=== PATIENT | female | born 1950 | race Caucasian/White ===

== ENCOUNTER 2020-07-15 14:54 | Emergency (ER) | payer MEDICARE, SELFPAY ==
[2020-07-15 14:55] VITALS: BP 163/107; PULSE 87; RESP 15; TEMP 36.1; O2SAT 96; BMI 34.4
--- NOTE | 2020-07-15 15:31 | EKG12_ITS ---
Test Reason : SOB Blood Pressure : / mmHG Vent. Rate : 097 BPM Atrial Rate : 097 BPM P-R Int : 138 ms QRS Dur : 134 ms QT Int : 420 ms P-R-T Axes : 055 -18 119 degrees QTc Int : 533 ms Normal sinus rhythm with sinus arrhythmia Left bundle branch block Abnormal ECG Confirmed by TIFFANY AUSTIN, DWAINE ([id number]), news copy editor NAYE BROWN ([id number]) on 07/24/2020 9:55:25 A M Referred By: ZACHERY Confirmed By:CARMEN ALLEN MD
--- NOTE | 2020-07-15 15:34 | RAD_ITS ---
STUDY: X-RAY CHEST REASON FOR EXAM: Female, 69 years old. PT C/O FATIGUE, MUCLE ACHES AND DIARRHEA SINCE LAST WEEK TECHNIQUE: Single AP portable view of the chest. COMPARISON: None. FINDINGS: EKG electrodes are seen. Hyperinflation. The lungs are clear. There is no demonstrated pleural abnormality. Normal size heart. Normal mediastinum and tim. Normal visualized pulmonary arteries. There is atherosclerotic calcification of the aortic arch with tortuosity. There are diffuse degenerative changes of the visualized thoracic spine. Normal visualized ribs, clavicles, and shoulders. Findings suggestive of a small hiatal hernia. RAD/Chest 1 View (Portable) IMPRESSION: Hyperinflation. The lungs are clear. Electronically Signed: Marcus Chen, at 15:48 EST , Service support ,
--- NOTE | 2020-07-15 15:51 | ED.DCSUM_ITS ---
History of Present Illness Chief Complaint: Fatigue Narrative: 69-year-old female with cough and mild body aches and she estimates this is about day 5. She went to an urgent care today and they sent her to the emergency room for evaluation of possible irregular rhythm. Patient is not having chest pain but has a mild cough with shortness of breath. She states she feels fine otherwise. Patient states I do not know why I am here. Has history of her lipidemia and hypothyroidism. Past Medical History - Allergies and Home Meds Allergies/Adverse Reactions: Allergies No Known Allergies Allergy (Verified 07/15/20 14:57) Primary Care Physician: Yazmin Miller MD [Primary Care Provider] - Prior records reviewed: Yes Past Medical History: - - Upper lipidemia and hypothyroidism Surgical History: noncontributory Lives: Alone Smoking Status: Unknown if ever smoked Alcohol: None Drugs: None Review of Systems General: Reports: Chills. Denies: Fever, Malaise Eyes: Denies: Visual changes - bilaterally, Diplopia ENT: Denies: Rhinorrhea, Sore throat Cardiovascular: Denies: Chest pain, Palpitations Respiratory: Reports: Dyspnea, Cough Gastrointestinal: Denies: Abdominal pain, Nausea, Vomiting, Diarrhea, Melena, Hematochezia Musculoskeletal: Reports: Myalgias. Denies: Arthralgias, Neck pain Skin: Denies: Rash, Wounds Neurological: Denies: Headache, Weakness, Numbness Psych: Denies: Depression, Anxiety Physical Exam Vital Signs/Narrative: Vital Signs Temp Pulse Resp BP Pulse Ox 07/15/20 14:55 96.9 F L 87 15 163/107 H 96 Inital Vital Signs reviewed: Yes General: Well nourished, No Acute Distress Head: Normocephalic, Atraumatic Eyes: Perrl, EOMI ENT: Moist mucous membranes, No rhinorrhea Cardiovascular: Regular rate, Regular rhythm Respiratory: No distress, CTA bilaterally Extremities: Nontender, No edema Skin: Normal color, No rash. Negative for: Cyanosis Neurological: Alert, Oriented x3, Cranial nerves II-XII grossly intact Psychological: Normal affect, Normal Mood Diagnostic/Tx/Re-eval Clinical Impression(s) from Imaging Studies Chest X-Ray 07/15/20 15:34 IMPRESSION: Hyperinflation. The lungs are clear. Electronically Signed: Marcus Chen, at 15:48 EST , Service support , Chest CTA 07/15/20 17:00 IMPRESSION: 1. No pulmonary embolism or arterial dissection. 2. Mild bilateral groundglass opacities concerning for pneumonia or bronchiolitis. Consider typical and atypical etiologies. 3. Cholelithiasis. 4. Small hiatal hernia. Electronically Signed: Sheri Martin MD at 17:45 EST Tel , Service support , Laboratory Data 07/15/20 07/15/20 07/15/20 15:50 16:00 16:00 WBC 6.4 RBC 5.23 Hgb 14.8 Hct 46.4 MCV 88.7 MCH 28.3 MCHC 31.9 L RDW Std Deviation 42.9 RDW Coeff of Mark 13.2 Plt Count 366 MPV 10.9 Immature Gran % (Auto) 0.200 Neut % (Auto) 71.3 H Lymph % (Auto) 16.2 L [place] % (Auto) 9.6 Eos % (Auto) 2.5 Baso % (Auto) 0.2 Absolute Neuts (auto) 4.6 Absolute Lymphs (auto) 1.03 Nucleated RBC % 0 D-Dimer Quant (PE/DVT) 0.79 H* Sodium Potassium Chloride Carbon Dioxide Anion Gap BUN Creatinine Estim Creat Clear Calc Est GFR (MDRD) Af Amer Est GFR (MDRD) Non-Af BUN/Creatinine Ratio Glucose Lactic Acid Calcium Magnesium Total Bilirubin AST ALT Alkaline Phosphatase Troponin I Total Protein Albumin Globulin Albumin/Globulin Ratio Procalcitonin COVID-19 (MICHELLE) Positive 07/15/20 07/15/20 07/15/20 16:00 16:00 16:20 WBC RBC Hgb Hct MCV MCH MCHC RDW Std Deviation RDW Coeff of Mark Plt Count MPV Immature Gran % (Auto) Neut % (Auto) Lymph % (Auto) [place] % (Auto) Eos % (Auto) Baso % (Auto) Absolute Neuts (auto) Absolute Lymphs (auto) Nucleated RBC % D-Dimer Quant (PE/DVT) Sodium 141 Potassium 3.7 Chloride 106 Carbon Dioxide 30.0 Anion Gap 5 BUN 10 Creatinine 0.69 Estim Creat Clear Calc 51.63 Est GFR (MDRD) Af Amer 108 Est GFR (MDRD) Non-Af 89 BUN/Creatinine Ratio 14.4 Glucose 93 Lactic Acid 0.9 Calcium 8.7 Magnesium 2.0 Total Bilirubin 0.40 AST 50 H ALT 78 H Alkaline Phosphatase 87 Troponin I < 0.015 Total Protein 7.5 Albumin 3.9 Globulin 3.6 Albumin/Globulin Ratio 1.1 Procalcitonin < 0.04 COVID-19 (MICHELLE) - Rhythm Strip Rhythm Strip: Sinus Rhythm Rate: 97 - EKG Initial EKG Interpretation: Sinus Rhythm, Sinus Arrythmia, LBBB - Medical Decision Making Presents for irregular heart rhythm from urgent care. She does have mild Covid?19 symptoms. Initially when I evaluated her I did an ambulatory pulse ox at the bedside for 30 seconds to maintain saturations of 94%. She did get tachycardic up to 150. She did not seem in any distress. I obtained an EKG which showed a normal sinus rhythm with a mild sinus arrhythmia. As interpreted by myself. There is no ST elevation or depression. There is a left bundle branch block. Patient denies any chest pain. Chest x-ray was obtained and is negative for acute process as read by myself and the radiologist. Dimer was elevated. CTA does show concern for groundglass infiltrates consistent with Covid?19. There are no pulmonary emboli. On reevaluation after hydration patient appears well. She states she feels fine. I feel she is stable for discharge home at this time. She did meet criteria to be enrolled in monoclonal antibodies and was given the paperwork. Her name was called over to the referral line. She is given return precautions. Impression: 1. Covid?19 pneumonitis ED Disposition - Plan for ED Patient: Disposition: Home or Assisted Living Instructions: Coronavirus Disease 2019 (COVID-19): Overview, Coronavirus Disease 2019 (COVID-19): Caring for Yourself or Others, Preventing the Spread of Infection Understanding Isolation Procedures Referrals: Yazmin Miller MD [Primary Care Provider] -
[2020-07-15 15:57] VITALS: BP 120/84; PULSE 93; RESP 17; TEMP 36.1; O2SAT 96
[2020-07-15 16:22] VITALS: BP 130/69; PULSE 94; RESP 92; TEMP 36.2; O2SAT 20
[2020-07-15 16:36] LABS: Absolute Lymphocyte Count 1.03 X10^3/uL (0.83-4.51); Absolute Neutrophil Count 4.6 X10^3/uL (2.0-7.7); Basophil# 0.01 X10^3/uL; Basophil% 0.2 % (0-1); Eosinophil# 0.16 X10^3/uL; Eosinophils% 2.5 % (0-5); Hematocrit 46.4 % (37-47); Hemoglobin 14.8 g/dL (12.0-15.0); Lymphocyte # 1.03 X10^3/ul (4.0); Lymphocyte % 16.2 % (19-41); Mean Corp Hgb Conc 31.9 g/dL (32-36); Mean Corpuscular Hgb 28.3 pg (27.0-32.0); Mean Corpuscular Volume 88.7 fL (81-99); Mean Platelet Vol. 10.9 fl (6.2-12.0); Monocyte# 0.61 X10^3/uL; Monocyte% 9.6 % (0-10); NRBC Flagged by Analyzer 0 % (0-5); Neutrophil # 4.55 X10^3/uL (2.7-7.7); Neutrophil % 71.3 % (47-70); Platelet Count 366 K/mm3 (150-450); RBC Distribution Width CV 13.2 % (11.6-14.6); RBC Distribution Width SD 42.9 fl (35.1-43.9); Red Blood Count 5.23 M/mm3 (4.2-5.4); White Blood Count 6.4 K/mm3 (4.4-11.0)
[2020-07-15 16:53] LABS: D-Dimer Quantitative (DVT/PE) 0.79 FEU/ug/m (0.27-0.49)
[2020-07-15 16:54] LABS: ALB/GLOB Ratio 1.1 RATIO (0.9-2.4); AST(SGOT) 50 U/L (15-37); Alanine Aminotransfer ALT/SGPT 78 U/L (13-56); Albumin, Serum 3.9 g/dL (3.2-5.0); Alkaline Phosphatase 87 U/L (45-117); Anion Gap 5 (5-15); BUN 10 mg/dL (7-18); BUN/Creat Ratio 14.4 RATIO (10-20); Calcium,Total 8.7 mg/dL (8.5-10.1); Chloride 106 mmol/L (98-107); Creatinine, Serum 0.69 mg/dL (0.55-1.02); EST Glomerular Filtration Rate 89 mL/min (>60); Est Glom Filt Rate - Afr Amer 108 mL/min (>60); Estimated Creatinine Clearance 51.63 ml/min; Globulin 3.6 g/dL (2.2-4.2); Glucose 93 mg/dL (74-106); Potassium 3.7 mmol/L (3.5-5.1); Protein, Total 7.5 g/dL (6.4-8.2); Sodium Level 141 mmol/L (136-145)
--- NOTE | 2020-07-15 17:00 | CT_ITS ---
STUDY: CTA CHEST REASON FOR EXAM: Female, 69 years old. Hypoxia, elevated D-dimer, muscle aches, fatigue RADIATION DOSAGE (If Supplied By Facility): CTDIvol = ( 13.97 ) mGy, DLP = ( 472.96 ) mGycm TECHNIQUE: The examination was performed with the intravenous administration of IV 100mL Isovue-370. Post-processing of the angiographic images was performed, with multiplanar reformation and 3D reconstruction. Individualized dose optimization techniques were used for this CT. COMPARISON: None. FINDINGS: The heart and pericardium are normal. The aorta is normal in caliber. No aneurysm or dissection. There is no mediastinal mass or adenopathy. There is no hilar or axillary adenopathy. There is no evidence of pulmonary embolus. There is no pleural effusion. Very mild groundglass opacities bilaterally. Large, solitary gallstone. Small hiatal hernia. There is no osseous abnormality. CT/CTA Chest W/WO Contrast IMPRESSION: 1. No pulmonary embolism or arterial dissection. 2. Mild bilateral groundglass opacities concerning for pneumonia or bronchiolitis. Consider typical and atypical etiologies. 3. Cholelithiasis. 4. Small hiatal hernia. Electronically Signed: Sheri Martin MD at 17:45 EST Tel , Service support ,
[2020-07-15 17:01] LABS: Lactic Acid 0.9 mmol/L (0.4-1.9)
[2020-07-15 17:03] LABS: Probe Check PASS; Specimen Processing Control PASS
[2020-07-15 17:05] VITALS: BP 128/98; PULSE 99; RESP 19; TEMP 36.8; O2SAT 94
[2020-07-15 19:17] LABS: Procalcitonin < 0.04 ng/mL (0.00-0.09)
== END 2020-07-15 18:44 | disposition home or self-care (01) ==
LOC: ED 16:01
PROVIDERS: Emergency Provider Student in an Organized Health Care Education/Training Program; PCP Internal Medicine
DX: U07.1 COVID-19 (principal); J12.89 Other viral pneumonia; I44.7 Left bundle-branch block, unspecified; E78.5 Hyperlipidemia, unspecified; E03.9 Hypothyroidism, unspecified; Z79.899 Other long term (current) drug therapy
CPT/HCPCS: 71045; 71275; 80053; 83605; 83735; 84145; 84484; 85025; 85379; 87040; 87635; 93005; 96360; 99284; J7040; Q9967; A4216; U0002

== ENCOUNTER 2022-07-20 15:43 | Emergency (ER) | payer MEDICARE, SELFPAY ==
[2022-07-20] VITALS (8 sets, daily range): BP systolic 128–147; BP diastolic 69–85; PULSE 77–111; RESP 16–18; TEMP 36–36.7; O2SAT 87–98; BMI 31.0
--- NOTE | 2022-07-20 16:45 | EKG12_ITS ---
Test Reason : DIZZY Blood Pressure : / mmHG Vent. Rate : 086 BPM Atrial Rate : 086 BPM P-R Int : 146 ms QRS Dur : 136 ms QT Int : 434 ms P-R-T Axes : 054 -16 119 degrees QTc Int : 519 ms Sinus rhythm with Premature supraventricular complexes Left bundle branch block Abnormal ECG Confirmed by MESSI AUSTIN, SOREN ([id number]), video editor NAYE BROWN ([id number]) on 07/22/2022 10:42:02 AM Referred By: Confirmed By:SOREN SWENSON MD
--- NOTE | 2022-07-20 16:46 | EX.ED.DYSGE1 ---
HPI History of Present Illness Chief Complaint: Dizziness Informant: patient Onset/Context/Timing Onset: Days Context: Gradual Onset Narrative Narrative: Patient presents secondary to lightheadedness/dizziness when she stands. She was diagnosed with influenza A 6 days ago. She was started on Tamiflu. Family states that she started coughing up green sputum on Wednesday, 3 days ago so they called the doctor and was started on doxycycline as well. Patient presents with continued cough and feels lightheaded and dizzy when she stands. She denies chest pain. She does not know when her last fever was. [facility] Medical History High cholesterol Hypothyroidism Home Medications alendronate 35 mg tablet 35 mg PO QMONTH 07/15/20 [History Last Taken Unknown] esomeprazole magnesium 20 mg capsule,delayed release 20 mg PO DAILY 07/15/20 [History Last Taken Unknown] levothyroxine 112 mcg tablet 112 mcg PO DAILY 07/15/20 [History Last Taken Unknown] pravastatin 40 mg tablet 40 mg PO DAILY 07/15/20 [History Last Taken Unknown] calcium carbonate 300 mg (750 mg) chewable tablet 300 mg PO BID 07/20/22 [History Last Taken Unknown] carvedilol 3.125 mg tablet 3.125 mg PO BID 07/20/22 [History Last Taken Unknown] doxycycline hyclate 100 mg tablet 100 mg PO BID 07/20/22 [History Last Taken Unknown] oseltamivir 75 mg capsule 75 mg PO BID 07/20/22 [History Last Taken Unknown] Allergy/AdvReac Type Severity Reaction Status Date / Time No Known Allergies Allergy Verified 07/20/22 15:50 Social History Smoking Status: Never smoker ROS ROS ED Constitutional Constitutional ED: Reports fever(s); Denies chills Eyes Eyes: Denies change in vision or discharge from eye(s) ENT ENT ED: Denies discharge from eye(s), rhinorrhea or sore throat Cardiovascular Cardiovascular: Denies chest pain or palpitations Respiratory/Chest Respiratory/Chest: Reports cough and dyspnea Gastrointestinal Gastrointestinal: Denies abdominal pain, diarrhea, nausea or vomiting Genitourinary Genitourinary ED: Denies difficulty urinating or dysuria Musculoskeletal Musculoskeletal: Reports myalgias; Denies back pain or extremity pain Integumentary Denies Abrasions or rash Neurologic Neurologic: Denies headache(s) or weakness Psychiatric Psychiatric: Denies anxiety or depression Allergic/Immunologic Allergic/Immunologic ED: Denies lip swelling or urticaria EXAM Physical Exam Const Vital Signs: 07/20/22 15:48 07/20/22 16:31 07/20/22 17:31 Temperature 96.8 F L Temperature Source Temporal Pulse Rate 94 111 H 77 Respiratory Rate 18 18 Blood Pressure 138/85 H 128/69 H Blood Pressure Mean 102 88 Pulse Ox 96 90 95 Pulse Ox [AMBULATING on Room Air] Oxygen Delivery Method Room Air Room Air Nasal Cannula Oxygen Flow Rate (L/min) 2 Oxygen Flow Rate (L/min) [AMBULATING on Room Air] 07/20/22 17:30 07/20/22 19:44 07/20/22 20:39 Temperature Temperature Source Pulse Rate 87 Respiratory Rate 16 Blood Pressure Blood Pressure Mean Pulse Ox 87 96 Pulse Ox [AMBULATING on Room Air] 94 Oxygen Delivery Method Room Air Nasal Cannula Oxygen Flow Rate (L/min) 2 Oxygen Flow Rate (L/min) [AMBULATING on Room Air] 2 Positive well nourished and well developed General Appearance ED: well developed HEENT Reports normocephalic and head/scalp atraumatic Eyes PERRL and EOMs intact bilaterally Neck supple Chest Wall inspection of chest normal and palpation of chest normal Resp normal respiratory effort and clear to auscultation bilaterally Cardio regular rate and regular rhythm GI normal to inspection, nondistended, normoactive bowel sounds Palpation: soft Extremity normal to inspection Neuro oriented x3 and no sensory deficits noted Sensorium / Orientation: alert Motor Exam: strength 5/5 throughout Psych mental status grossly normal Skin no rashes or lesions noted MDM MDM MDM Narrative Medical decision making narrative: Patient placed on monitoring and evaluation advisor. EKG, chest x-ray, lab work obtained. Lab Data Attestation: I reviewed the patient's lab results. Labs: Laboratory Results - last 24 hr 07/20/22 07/20/22 16:44 16:44 WBC 7.9 RBC 5.05 Hgb 14.5 Hct 46.4 MCV 91.9 MCH 28.7 MCHC 31.3 L RDW Std Deviation 43.7 RDW Coeff of Mark 13.0 Plt Count 446 MPV 10.9 Immature Gran % (Auto) 0.400 Neut % (Auto) 71.9 H Lymph % (Auto) 16.1 L [place] % (Auto) 9.0 Eos % (Auto) 2.3 Baso % (Auto) 0.3 Absolute Neuts (auto) 5.7 Absolute Lymphs (auto) 1.28 Nucleated RBC % 0 Sodium 139 Potassium 3.2 L Chloride 100 Carbon Dioxide 35.0 H Anion Gap 4 L BUN 7 Creatinine 0.55 Estim Creat Clear Calc 50.18 Est GFR (MDRD) Af Amer 140 Est GFR (MDRD) Non-Af 115 BUN/Creatinine Ratio 12.7 Glucose 105 Calcium 9.2 Radiography Chest X-Ray - ED: 1 View, Read by ED Physician and Chronic Changes Diagnostic Testing: Clinical Impression(s) from Imaging Studies Chest X-Ray 07/20/22 17:10 IMPRESSION: Likely COPD related changes with left lower lobe early infiltrate not excluded, clinically correlate. Electronically Signed: Billy CastroDO at 17:34 EST , Chest CTA 07/20/22 18:22 IMPRESSION: 1. No evidence of pulmonary embolism or aortic dissection. 2. Patchy airspace disease within the bilateral lower lobes and left upper lobe consistent with multifocal infiltrates/pneumonia in the appropriate clinical setting. Electronically Signed: Billy DO Matthew at 19:13 EST , EKG Initial EKG: Attestation: I personally reviewed and interpreted this EKG as follows: Interpretation: Sinus Rhythm (Sinus 86 with PACs. Left bundle branch block noted, no acute ischemia.) Treatment and Re-Evaluation Narrative: I was notified by nursing staff that patient's O2 sat dropped to 87% on room air. She was placed on 2 L nasal cannula. CBC and chemistry studies are significant for slightly low potassium at 3.2. This is replaced orally. Portable chest x-ray per my interpretation reveals chronic changes. EKG reveals no acute ischemia with a left bundle branch block. Due to the patient's hypoxia a CTA of the chest is obtained. This reveals no evidence of PE or dissection. There is patchy airspace disease in the bilateral lower lobes and left upper lobe consistent with multifocal infiltrate/pneumonia. This was discussed with the patient. While this may be all viral in nature, I will cover her with Rocephin and Zithromax. I will avoid Levaquin as her QTC is currently prolonged at 519. Due to the patient requiring oxygen I will speak with hospitalist regarding admission. Addendum: Patient was seen by hospitalist. They were able to arrange for the patient to have home oxygen tonight. She will continue the doxycycline she was previously taking. Patient will now be discharged to home with oxygen. Discharge Plan Triage Chief Complaint: Dizziness ED Provider: Radha Fletcher Dx/Rx/DC Orders Clinical Impression: Pneumonia, Hypoxia, Influenza A Instructions: ED Influenza (Adult) Prescriptions: No Action alendronate 35 MG tablet 35 mg PO QMONTH levothyroxine 112 MCG tablet 112 mcg PO DAILY pravastatin 40 MG tablet 40 mg PO DAILY esomeprazole magnesium 20 MG capsule 20 mg PO DAILY calcium carbonate 300 mg (750 mg) Tablet,Chewable 300 mg PO BID carvedilol 3.125 mg tablet 3.125 mg PO BID Label Comments: TAKE 1 TABLET BY MOUTH TWICE DAILY oseltamivir 75 mg capsule 75 mg PO BID Label Comments: TAKE 1 CAPSULE BY MOUTH TWICE DAILY FOR 5 DAYS doxycycline hyclate 100 mg tablet 100 mg PO BID Label Comments: TAKE 1 TABLET BY MOUTH TWICE DAILY FOR 10 DAYS Primary Care Provider: Yazmin Miller Referrals: Yazmin Miller MD [Primary Care Provider] - 1-2 Weeks Disposition Disposition: Home, Self Care
--- NOTE | 2022-07-20 17:10 | RAD_ITS ---
STUDY: X-RAY CHEST REASON FOR EXAM: Female, 71 years old. cough TECHNIQUE: PA and lateral views of the chest. COMPARISON: 07/15/2020 FINDINGS: Hyperinflation is present with underlying COPD related changes not excluded. Chronic interstitial markings of the lung bases are noted with subtle opacity overlying the left lower lobe on frontal projection. There is no demonstrated pleural abnormality. Normal size heart. Normal mediastinum and tim. Normal visualized pulmonary arteries. There is atherosclerotic calcification of the aortic arch with tortuosity. Normal visualized thoracic spine. Normal visualized ribs, clavicles, and shoulders. There is no demonstrated abnormality of the visualized soft tissue structures of the upper abdomen. RAD/Chest PA and Lateral IMPRESSION: Likely COPD related changes with left lower lobe early infiltrate not excluded, clinically correlate. Electronically Signed: Billy Castro DO at 17:34 EST ,
[2022-07-20 17:15] LABS: Absolute Lymphocyte Count 1.28 X10^3/uL (0.83-4.51); Absolute Neutrophil Count 5.7 X10^3/uL (2.0-7.7); Basophil# 0.02 X10^3/uL; Basophil% 0.3 % (0-1); Eosinophil# 0.18 X10^3/uL; Eosinophils% 2.3 % (0-5); Hematocrit 46.4 % (37-47); Hemoglobin 14.5 g/dL (12.0-15.0); Lymphocyte # 1.28 X10^3/ul (0.83-4.51); Lymphocyte % 16.1 % (19-41); Mean Corp Hgb Conc 31.3 g/dL (32-36); Mean Corpuscular Hgb 28.7 pg (27.0-32.0); Mean Corpuscular Volume 91.9 fL (81-99); Mean Platelet Vol. 10.9 fl (6.2-12.0); Monocyte# 0.71 X10^3/uL; NRBC Flagged by Analyzer 0 % (0-5); Neutrophil # 5.71 X10^3/uL (2.7-7.7); Neutrophil % 71.9 % (47-70); Platelet Count 446 K/mm3 (150-450); RBC Distribution Width SD 43.7 fl (35.1-43.9); Red Blood Count 5.05 M/mm3 (4.2-5.4); White Blood Count 7.9 K/mm3 (4.4-11.0)
[2022-07-20 17:16] LABS: Anion Gap 4 (5-15); BUN 7 mg/dL (7-18); BUN/Creat Ratio 12.7 RATIO (10-20); Calcium,Total 9.2 mg/dL (8.5-10.1); Chloride 100 mmol/L (98-107); Creatinine, Serum 0.55 mg/dL (0.55-1.02); EST Glomerular Filtration Rate 115 mL/min (>60); Est Glom Filt Rate - Afr Amer 140 mL/min (>60); Estimated Creatinine Clearance 50.18 ml/min; Glucose 105 mg/dL (74-106); Potassium 3.2 mmol/L (3.5-5.1); Sodium Level 139 mmol/L (136-145)
[2022-07-20] MEDS: 0.9% Normal Saline 1,000 ML 1000 ML IV (17:30)
--- NOTE | 2022-07-20 18:22 | CT_ITS ---
STUDY: CTA CHEST REASON FOR EXAM: Female, 71 years old. pulmonary embolism RADIATION DOSAGE (If Supplied By Facility): CTDIvol = ( 13.58 ) mGy, DLP = ( 442.91 ) mGycm TECHNIQUE: The examination was performed with the intravenous administration of IV 100mL Isovue-370. Post-processing of the angiographic images was performed, with multiplanar reformation and 3D reconstruction. Individualized dose optimization techniques were used for this CT. COMPARISON: None. FINDINGS: Normal enhancement of the main pulmonary artery and right and left pulmonary arteries. Normal enhancement of the bilateral peripheral pulmonary arteries. There is no demonstrated pulmonary embolism. Normal thoracic aorta and visualized great vessels. There is no demonstrated aortic dissection. Normal heart and pericardium. Normal mediastinum. Normal hilar regions. Normal visualized trachea and bronchi. The lungs are well expanded. Left lower lobe patchy regions of airspace disease with mild patchy airspace disease and left upper lobe consistent with multifocal infiltrates. Minimal airspace disease within the superior segment of the right lower lobe is also noted. Normal pleura. Normal chest wall structures. There are degenerative changes of thoracic spine. Small hiatal hernia is present. CT/CTA Chest W/WO Contrast IMPRESSION: 1. No evidence of pulmonary embolism or aortic dissection. 2. Patchy airspace disease within the bilateral lower lobes and left upper lobe consistent with multifocal infiltrates/pneumonia in the appropriate clinical setting. Electronically Signed: Billy Castro DO at 19:13 EST ,
[2022-07-20] MEDS: Potassium Chloride Oral Tablet 20 MEQ 40 MEQ PO (19:42)
[2022-07-20] MEDS: Azithromycin 250 MG Tablet 500 MG PO (19:42)
[2022-07-20] MEDS: Ceftriaxone 1 GM/50 ML BAG IV (19:48)
--- NOTE | 2022-07-20 21:37 | NURSING ---
Reviewed use of oxygen tank, spo2 monitor and S&S. Pt and family member stated understanding.
--- NOTE | 2022-07-21 13:44 | CASEMGMT ---
TC to pt as f/u d/t being sent home with Oxygen. Pt stated the provider came to the home. Pt reports wearing the Oxygen and being on 2L. Pt has been checking pulse ox regularly and has checked it four times today. Pt reports an Oxygen level of 89-90. [employer] Tester requested pt check pulse ox while on the phone. Pt did and reports it being 94%. Pt denies any breathing issues at this time. Pt further denied a scheduled PCP appt. Navigator encouraged pt to contact PCP to schedule. Pt plans to do so to discuss Oxygen. Navigator reminded pt to contact PCP or go to ED if there are concerns with Oxygen level.
== END 2022-07-20 21:40 | disposition home or self-care (01) ==
PROVIDERS: Emergency Provider Emergency Medicine; PCP Internal Medicine; Visit Provider Emergency Medicine
DX: J10.00 Influenza due to other identified influenza virus with unspecified type of pneumonia (principal); R42 Dizziness and giddiness; R09.02 Hypoxemia; E78.00 Pure hypercholesterolemia, unspecified
CPT/HCPCS: 71046; 71275; 80048; 85025; 93005; 96365; 99284; J7030; Q9967; A4216